=== PATIENT | male | born 1970 | race Two or more races ===

== ENCOUNTER 2017-01-31 18:40 | Emergency (ER) | payer BC, MEDICAID ==
[~2017-01-31] VITALS: Ht 170.2 cm; Wt 70.3 kg
[~2017-01-31 18:40] MED LIST: ALPR0.25 PO; ZOLP10TA2 PO
[2017-01-31] MEDS ORDERED: ACETAMINOPHEN ES 500 MG TABLET PO ONE (19:00)
[2017-01-31] MEDS ORDERED: ACETAMINOPHEN ES 500 MG TABLET ONE (19:04)
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
--- NOTE | 2017-01-31 19:11 | NUR ---
ELAN DAVILA AT BS.
[2017-01-31 19:14] LABS: BASOPHILS % (AUTO) 0.4 % (0.0-2.0); EOSINOPHILS % (AUTO) 0.6 % (0.0-6.0); HEMATOCRIT 41 % (39-51); HEMOGLOBIN 13.9 g/dL (13.5-17.5); LYMPHOCYTES # (AUTO) 2.3 /CMM (0.8-4.8); LYMPHOCYTES % (AUTO) 28.9 % (20.0-44.0); MEAN CORPUSCULAR HEMOGLOBIN 31 PG (26.0-33.0); MEAN CORPUSCULAR HGB CONC 34 g/dl (31.0-36.0); MEAN CORPUSCULAR VOLUME 90 fL (80-96); MONOCYTES # (AUTO) 0.5 /CMM (0.1-1.30); MONOCYTES % (AUTO) 6.3 % (2.0-12.0); NEUTROPHILS % (AUTO) 63.8 % (43.0-81.0); PLATELET COUNT (AUTO) 234 /CMM (150-450); RDW COEFFICIENT OF VARIATION 11.9 (11.5-15.0); RED BLOOD CELL COUNT(AUTO) 4.55 MIL/uL (4.5-6.0); WHITE BLOOD COUNT (AUTO) 7.9 K/uL (4.3-11.0)
[2017-01-31 19:29] LABS: CALCIUM, SERUM 8.7 mg/dL (8.5-10.1); CREATININE 1.4 mg/dL (0.6-1.3); POTASSIUM 3.6 mmol/L (3.5-5.1)
[2017-01-31] MEDS ORDERED: IV NS 0.9% 250 ML IV ONE (19:29)
[2017-01-31] MEDS ORDERED: IOHEXOL-300 100 ML VIAL IV ONE (19:29)
[2017-01-31] MEDS ORDERED: CT SWABBABLE VALVE TRANS SET 1 EA INFUS.SET MC ONE (19:29)
--- NOTE | 2017-01-31 19:41 | NUR ---
PT TO CT [facility]
--- NOTE | 2017-01-31 19:53 | NUR ---
PT RETURN FROM [facility],.
--- NOTE | 2017-01-31 20:50 | NUR ---
SPOKE WITH RICARDO TO LEAVE MESSAGE WITH DR LUJAN FOR CALL BACK
--- NOTE | 2017-01-31 21:06 | NUR ---
PT OK TO DISCHARGE PER [employer]GR[employer] FIELD COORDINATOR. Patient discharged to home in stable condition. Written and verbal after care instructions given. Patient verbalizes understanding of instruction.Patient is awake and alert to self, day, and place. PT ambulatory with a steady gait
--- NOTE | 2017-01-31 21:07 | NUR ---
IV removed. Catheter intact and site benign. Pressure and 4x4 applied to site. No bleeding noted.
[2017-01-31 21:09] VITALS: BP 124/72
== END 2017-01-31 21:27 | disposition home or self-care (01) ==
LOC: ER 18:41
DX: S30.1XXA Contusion of abdominal wall, initial encounter (principal); S60.211A Contusion of right wrist, initial encounter; W22.09XA Striking against other stationary object, initial encounter; Y93.89 Activity, other specified; Y92.89 Other specified places as the place of occurrence of the external cause; Y99.8 Other external cause status
CPT/HCPCS: 36415; 73110; 80048-TC; 85025-TC; A4606; J7050; Q9967; Z7610

== ENCOUNTER 2017-02-08 21:12 | Emergency (ER) | payer BC ==
[~2017-02-08] VITALS: Ht 167.6 cm; Wt 68.0 kg
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
[2017-02-08] MEDS ORDERED: IBUPROFEN 200 MG TABLET ONE (21:58)
[2017-02-08] MEDS ORDERED: IBUPROFEN 600 MG TABLET PO ONE (22:00)
--- NOTE | 2017-02-08 22:08 | NUR ---
CALLED XRAY TO F/U ON STATUS OF FINGER XRAY
--- NOTE | 2017-02-08 22:59 | NUR ---
Patient discharged to home in stable condition. Written and verbal after care instructions given. Patient verbalizes understanding of instruction.
[2017-02-08 23:20] VITALS: BP 150/93
== END 2017-02-08 22:59 | disposition home or self-care (01) ==
LOC: ER 21:12
DX: S67.01XA Crushing injury of right thumb, initial encounter (principal); W23.0XXA Caught, crushed, jammed, or pinched between moving objects, initial encounter; Y93.89 Activity, other specified; Y92.89 Other specified places as the place of occurrence of the external cause; Y99.8 Other external cause status
CPT/HCPCS: 73120; 99284; A4606; Z7610